=== PATIENT | female | born 1995 | race Caucasian/White ===

== ENCOUNTER 2017-08-09 11:27 | Emergency (ER) | payer SELFPAY ==
[~2017-08-09] VITALS: Ht 157.5 cm; Wt 56.2 kg
[~2017-08-09 11:27] MED LIST: ALBUTEROL S2.5 MG/.5 IN; ALBUTEROL0.083 % IN; AMOXICILLIN500 MG PO; AUGMENTIN400 MG OR; BACTRIM DS1 TAB PO; CLARITIN10 M1 PO; NAPROSYN500 MG PO; NO HOME MEDS; PROAIR HFA IN; PROVENTIL0.083 % IN; ROBITUSSIN AC10 ML OR; ULTRAM50 M1 PO; ULTRAM50 MG OR; ULTRAM50 MG PO; ZITHROMAX200 MG/5 M OR
[2017-08-09] MEDS ORDERED: MOTRIN800 MG PO (11:56)
[2017-08-09 12:10] VITALS: BP 126/81
== END 2017-08-09 12:10 | disposition home or self-care (01) | DRG 563 ==
LOC: ED 11:27
DX: M22.02 Recurrent dislocation of patella, left knee (principal); M12.562 Traumatic arthropathy, left knee

== ENCOUNTER 2018-03-31 18:47 | Emergency (ER) | payer SELFPAY ==
[~2018-03-31] VITALS: Ht 157.5 cm; Wt 56.0 kg
[~2018-03-31 18:47] MED LIST changes: +MOTRIN800 MG PO
[2018-03-31] MEDS ORDERED: ULTRAM50 M1 PO (18:55)
[2018-03-31 19:50] VITALS: BP 118/77
== END 2018-03-31 19:50 | disposition home or self-care (01) | DRG 563 ==
LOC: ED 18:47
PROC: 0SSDXZZ Reposition Left Knee Joint, External Approach (ICD-10-PCS; principal; 2018-03-31)
DX: S83.015A Lateral dislocation of left patella, initial encounter (principal); W50.0XXA Accidental hit or strike by another person, initial encounter; Y92.009 Unspecified place in unspecified non-institutional (private) residence as the place of occurrence of the external cause

== ENCOUNTER 2018-12-21 16:44 | Emergency (ER) | payer SELFPAY ==
[~2018-12-21] VITALS: Ht 157.5 cm; Wt 68.0 kg
[2018-12-21] MEDS ORDERED: DOXYCYCL HYC100 MG PO (17:17)
[2018-12-21] MEDS ORDERED: TRAMADOL HCL50 MG PO (17:18)
[2018-12-21 17:25] VITALS: BP 138/77
== END 2018-12-21 17:30 | disposition home or self-care (01) | DRG 605 ==
LOC: ED 16:44
DX: S51.852A Open bite of left forearm, initial encounter (principal); S51.851A Open bite of right forearm, initial encounter; F17.200 Nicotine dependence, unspecified, uncomplicated; W54.0XXA Bitten by dog, initial encounter; Y92.009 Unspecified place in unspecified non-institutional (private) residence as the place of occurrence of the external cause

== ENCOUNTER 2019-07-01 | Emergency (ER) | payer SELFPAY ==
[~2019-07-01] MED LIST changes: +DOXYCYCL HYC100 MG PO; +TRAMADOL HCL50 MG PO
[2019-07-01 19:15] LABS: URINE BILIRUBIN - DIPSTICK NEGATIVE (NEGATIVE); URINE BLOOD DIPSTICK MODERATE (NEGATIVE); URINE GLUCOSE - DIPSTICK 100 mg/dL (NEGATIVE); URINE KETONE NEGATIVE (NEGATIVE); URINE PROTEIN - DIPSTICK 100 mg/dL (NEG-TRACE)
[2019-07-01 19:16] LABS: URINE COLOR DK. YELLOW; URINE LEUK ESTERASE LARGE (NEGATIVE); URINE NITRITE - DIPSTICK POSITIVE (Negative)
[2019-07-01 19:24] LABS: URINE BACTERIA MODERATE hpf; URINE RBC TNTC RBC/hpf (0-5); URINE SQUAMOUS EPITHELIAL CELL FEW EPI/hpf (0-FEW); URINE WBC TNTC WBC/hpf (0-5)
[2019-07-01 20:40] LABS: HEMATOCRIT 38.4 % (37.0-47.0); HEMOGLOBIN 12.6 g/dl (12.0-16.0); IMMATURE GRANULOCYTES 0.4 % (0.0-5.0); MEAN CELL VOLUME 88.1 fL CALC (80.0-100.0); MEAN CORPUSCULAR HGB 28.9 pG CALC (26.0-32.0); MEAN CORPUSCULAR HGB CONC 32.8 g/L CALC (32.0-36.0); NEUT# 11.84 thou/uL (2.00-7.15); RED BLOOD COUNT 4.36 mill/uL (4.20-5.60); RED CELL DISTRI WIDTH 12.8 % (11.5-15.5)
[2019-07-01 21:15] LABS: ALBUMIN 4.1 g/dL (3.2-5.0); ALKALINE PHOSPHATASE 89 u/l (38-126); ANION GAP 12 (6-22 (CALC)); BUN 12 mg/dL (7-17); BUN/CREATININE RATIO 15 (12-20 (CALC)); CARBON DIOXIDE 22 mmol/l (22-30); CHLORIDE 107 mmol/l (95-108); CREATININE 0.8 mg/dL (0.5-1.0); GFR > 60 ML/MIN (>=60 (CALC)); GFR FOR AFR.AMER. > 60 ML/MIN (>=60 (CALC)); POTASSIUM 3.8 mmol/l (3.5-5.1); SGOT/AST 19 u/l (14-36); SODIUM 137 mmol/l (137-146); TOTAL PROTEIN 7.1 g/dL (6.3-8.2)
[2019-07-01 21:23] LABS: BILIRUBIN, TOTAL 0.9 mg/dL (0.0-1.4)
[2019-07-01] MEDS ORDERED: BACTRIM DS1 TAB PO (22:09)
[2019-07-03] MEDS ORDERED: MACROBID100 MG PO (11:42)
== END 2019-07-01 22:22 | disposition home or self-care (01) | DRG 690 ==
PROVIDERS: Emergency Medicine
DX: N39.0 Urinary tract infection, site not specified (principal); F17.210 Nicotine dependence, cigarettes, uncomplicated; B96.20 Unspecified Escherichia coli [E. coli] as the cause of diseases classified elsewhere

== ENCOUNTER 2019-08-28 | Emergency (ER) | payer SELFPAY ==
[~2019-08-28] MED LIST changes: +MACROBID100 MG PO
== END 2019-08-28 14:35 | disposition home or self-care (01) | DRG 563 ==
DX: S93.402A Sprain of unspecified ligament of left ankle, initial encounter (principal); F17.210 Nicotine dependence, cigarettes, uncomplicated; W10.9XXA Fall (on) (from) unspecified stairs and steps, initial encounter; Y92.009 Unspecified place in unspecified non-institutional (private) residence as the place of occurrence of the external cause

== ENCOUNTER 2020-11-30 16:07 | Emergency (ER) | payer SELFPAY ==
[2020-11-30 17:10] VITALS: BP 128/71
== END 2020-11-30 17:10 | disposition home or self-care (01) | DRG 607 ==
LOC: ED 16:07
DX: R23.8 Other skin changes (principal); J45.909 Unspecified asthma, uncomplicated; F17.210 Nicotine dependence, cigarettes, uncomplicated

== ENCOUNTER 2023-11-13 22:53 | Emergency (ER) | payer BC ==
[~2023-11-13] VITALS: Ht 157.5 cm; Wt 56.0 kg
[~2023-11-13 22:53] MED LIST changes: +NAPROXEN500 MG PO
[2023-11-13] MEDS ORDERED: HYDROcodone 7.5 MG/Acetaminophen 325 MG/COMBO PO ONE (23:15)
[2023-11-14 02:10] VITALS: BP 118/74
== END 2023-11-14 02:15 | disposition home or self-care (01) | DRG 605 ==
LOC: ED 22:53
DX: S50.01XA Contusion of right elbow, initial encounter (principal); J45.909 Unspecified asthma, uncomplicated; F17.290 Nicotine dependence, other tobacco product, uncomplicated; V00.141A Fall from scooter (nonmotorized), initial encounter